=== PATIENT | female | born 1970 | race Two or more races ===

== ENCOUNTER 2018-10-20 23:35 | Emergency (ER) | payer MEDICAID, OTHER ==
[~2018-10-20] VITALS: Ht 167.6 cm; Wt 127.0 kg
--- NOTE | 2018-10-21 00:10 | NUR ---
STACYSELLiliana FROM [facility] . TO ER BED 1. AAOX4. NO RESP DISTRESS NOTED. AMBULATORY. C/O MIDLINE MALFUNCTION. PT REPORT LEAKING AND PAIN ON MID LINE SITE ON L UPPER ARM. MIDLINE WAS PLACED YESTERDAY FOR ATB TX FOR CELLULITIS ON HER LEGS. SRINIVAS VILLEDA FOR EVAL.
--- NOTE | 2018-10-21 01:20 | NUR ---
PICC NURSE AT BEDSIDE
--- NOTE | 2018-10-21 01:51 | NUR ---
NEW MID LINE SITE ON R UPPER ARM BY FITO PICC NURSE
--- NOTE | 2018-10-21 02:40 | NUR ---
AT BEDSIDE REMOVING OLD MIDLINE
--- NOTE | 2018-10-21 02:57 | NUR ---
Patient discharged to home in stable condition. Written and verbal after care instructions given. Patient verbalizes understanding of instruction. Pt ambulatory with a steady gait w/ an aide of a cane
[2018-10-21 02:59] VITALS: BP 155/83
== END 2018-10-21 02:59 | disposition home or self-care (01) ==
LOC: ER 23:48
DX: Z45.2 Encounter for adjustment and management of vascular access device (principal); F32.9 Major depressive disorder, single episode, unspecified; F41.9 Anxiety disorder, unspecified; R01.1 Cardiac murmur, unspecified; Z88.2 Allergy status to sulfonamides; Z88.1 Allergy status to other antibiotic agents
CPT/HCPCS: 36569

== ENCOUNTER 2018-10-21 22:38 | Emergency (ER) | payer MEDICAID, OTHER ==
[~2018-10-21] VITALS: Ht 167.6 cm; Wt 127.0 kg
--- NOTE | 2018-10-21 22:52 | NUR ---
PT BIBSELF C/O OF R MIDLINE NOT FLUSHING. PT AXO4. RESPIRATIONS EVEN AND UNLABORED. PT TAKING VANCOMYCIN IV FOR CELLULITIS. PT PUT ON THE CHOCOLATE TEMPERER AND PULSE OX. PENDING EVAL FROM MARKY VILLEDA.
--- NOTE | 2018-10-22 00:51 | NUR ---
Patient discharged to home in stable condition. Written and verbal after care instructions given. Patient verbalizes understanding of instruction. IV removed. Catheter intact and site benign. Pressure and 4x4 applied to site. No bleeding noted.
[2018-10-22 00:52] VITALS: BP 150/80
== END 2018-10-22 00:53 | disposition home or self-care (01) ==
LOC: ER 22:44
DX: Z45.2 Encounter for adjustment and management of vascular access device (principal); R01.1 Cardiac murmur, unspecified; Z88.2 Allergy status to sulfonamides; Z88.1 Allergy status to other antibiotic agents
CPT/HCPCS: 71045-TC

== ENCOUNTER 2018-10-22 10:05 | Emergency (ER) | payer MEDICAID, OTHER ==
[~2018-10-22] VITALS: Ht 167.6 cm; Wt 108.9 kg
--- NOTE | 2018-10-22 10:17 | NUR ---
PT BIB C/O PICC LINE MALFUNCTION, PT IS AAOX4, NOT IN RESPIRAOTRY DISTRESS, V/S STABLE, KEPT RESTED AND COMFORTABLE, WILL CONTINUE TO MONITOR.
--- NOTE | 2018-10-22 10:25 | NUR ---
SEEN AND EXAMINED BY DR. HUFF.
--- NOTE | 2018-10-22 11:09 | NUR ---
AWAITING PICC LINE NURSE FOR EVAL.
--- NOTE | 2018-10-22 12:00 | NUR ---
PICC LINE NURSE AT BEDSIDE.
--- NOTE | 2018-10-22 12:49 | NUR ---
Patient discharged to home in stable condition. Written and verbal after care instructions given. Patient verbalizes understanding of instruction.
[2018-10-22 12:50] VITALS: BP 138/78
== END 2018-10-22 12:55 | disposition home or self-care (01) ==
LOC: ER 10:09
DX: T82.898A Other specified complication of vascular prosthetic devices, implants and grafts, initial encounter (principal); R01.1 Cardiac murmur, unspecified; Z88.2 Allergy status to sulfonamides; Z88.1 Allergy status to other antibiotic agents

== ENCOUNTER 2018-10-23 07:26 | Emergency (ER) | payer OTHER ==
[~2018-10-23] VITALS: Ht 167.6 cm; Wt 158.8 kg
== END 2018-10-23 09:47 | disposition home or self-care (01) ==
LOC: ER 07:29
DX: T82.524A Displacement of infusion catheter, initial encounter (principal); Z88.2 Allergy status to sulfonamides; Z88.1 Allergy status to other antibiotic agents

== ENCOUNTER 2018-10-25 11:06 | Emergency (ER) | payer OTHER ==
[2018-10-25] MEDS ORDERED: diphenhydrAMINE HCL 50 MG/ML VIAL ONE (17:57)
[2018-10-25] MEDS ORDERED: methylPREDNISolone SOD SUCC 125 MG/2ML VIAL ONE (17:57)
[2018-10-25] MEDS ORDERED: methylPREDNISolone SOD SUCC 125 MG/2ML VIAL IV ONE (18:00)
[2018-10-25] MEDS ORDERED: FAMOTIDINE/PF INJ 40 MG in IV D5W 250 ML IV ONE (18:00)
[2018-10-25] MEDS ORDERED: diphenhydrAMINE HCL 50 MG/ML VIAL IV ONE (18:00)
== END 2018-10-25 21:43 | disposition short-term general hospital (02) ==
DX: L30.9 Dermatitis, unspecified (principal); F41.9 Anxiety disorder, unspecified; Z88.2 Allergy status to sulfonamides; Z88.1 Allergy status to other antibiotic agents
CPT/HCPCS: 36415; 71045; 80048; 80076; 81001; 83605; 84145; 84484; 85025; 85730; 87040 ×2; 87086; 93005; 96365; 96375; 99285; J1200; J2930; J3490; J7060

== ENCOUNTER 2019-02-13 11:59 | Emergency (ER) | payer OTHER ==
[~2019-02-13] VITALS: Ht 167.6 cm; Wt 131.5 kg
--- NOTE | 2019-02-13 12:09 | NUR ---
C/O GENERALIZED REDNESS AND ITCH, "I BROKE OUT IN HIVES BEC OF STRESS", PT AAOX4, -SOB, NAD NOTED, VSS, PENDING MD RUSS
[2019-02-13] MEDS ORDERED: predniSONE 10 MG TABLET PO ONE (13:30)
[2019-02-13] MEDS ORDERED: IV NS 0.9% 1,000 ML BAG IV ONE (13:30)
[2019-02-13] MEDS ORDERED: FAMOTIDINE/PF INJ 20 MG/2 ML VIAL IV ONE ×2 (13:30→13:45)
[2019-02-13] MEDS ORDERED: diphenhydrAMINE HCL 50 MG/ML VIAL IV ONE (13:30)
[2019-02-13] MEDS ORDERED: diphenhydrAMINE HCL 50 MG/ML VIAL ONE (13:45)
[2019-02-13] MEDS ORDERED: predniSONE 20 MG TABLET ONE (13:45)
[2019-02-13] MEDS ORDERED: ACETAMINOPHEN ES 500 MG TABLET ONE (14:58)
[2019-02-13 15:00] VITALS: BP 129/60
[2019-02-13] MEDS ORDERED: ACETAMINOPHEN 325 MG TABLET PO ONE (15:00)
[2019-02-20] MEDS ORDERED: CLIN300C11 PO (16:19)
[2019-02-20] MEDS ORDERED: CHLO118L6 TP (16:19)
[2019-02-20] MEDS ORDERED: MUPI22OI2 TP (16:19)
[2019-02-20] MEDS ORDERED: DOXY-226 PO (16:19)
[2019-02-20] MEDS ORDERED: ACID1TAB12 PO (16:19)
== END 2019-02-13 15:48 | disposition home or self-care (01) ==
LOC: ER 12:00
DX: T63.481A Toxic effect of venom of other arthropod, accidental (unintentional), initial encounter (principal); F41.9 Anxiety disorder, unspecified; Z88.2 Allergy status to sulfonamides; Z88.1 Allergy status to other antibiotic agents; Y92.89 Other specified places as the place of occurrence of the external cause
CPT/HCPCS: 96374; 96375; 99283; J1200; J3490; J7030; J7512

== ENCOUNTER 2019-02-17 11:48 | Emergency (ER) | payer OTHER ==
[~2019-02-17] VITALS: Ht 167.6 cm; Wt 127.0 kg
[2019-02-17 11:54] VITALS: BP 142/76
[2019-02-18] MEDS ORDERED: BUSP15TA3 PO (01:45)
[2019-02-18] MEDS ORDERED: PRED2.5T PO (01:45)
[2019-02-18] MEDS ORDERED: DICL100G34 TD (08:31)
[2019-02-18] MEDS ORDERED: CLIN300C3 PO (08:31)
[2019-02-18] MEDS ORDERED: HYDR-3972 PO (08:31)
[2019-02-20] MEDS ORDERED: ACID1TAB12 PO (16:19)
[2019-02-20] MEDS ORDERED: MUPI22OI2 TP (16:19)
[2019-02-20] MEDS ORDERED: DOXY-226 PO (16:19)
[2019-02-20] MEDS ORDERED: CHLO118L6 TP (16:19)
[2019-02-20] MEDS ORDERED: CLIN300C11 PO (16:19)
== END 2019-02-17 13:31 | disposition home or self-care (01) ==
LOC: ER 11:52
DX: L03.114 Cellulitis of left upper limb (principal); L03.311 Cellulitis of abdominal wall; F41.9 Anxiety disorder, unspecified; Z88.2 Allergy status to sulfonamides; Z88.1 Allergy status to other antibiotic agents; Z60.2 Problems related to living alone

== ENCOUNTER 2019-02-17 19:46 | Inpatient (IN) | payer OTHER ==
[~2019-02-17] VITALS: Ht 167.6 cm; Wt 144.2 kg
--- NOTE | 2019-02-17 20:00 | NUR ---
PT BIBRA. C/O "HAVING SKIN RASH ON HANDS AND ABDOMEN X1 DAY, FROM [place]QU[place]O BITE, ALSO HAD A FEVER TODAY" -SOB AOX4. AMBULATORY. VSS AT THIS TIME.
[2019-02-17] MEDS ORDERED: IBUPROFEN 600 MG TABLET PO ONE ×2 (20:12→20:30)
[2019-02-17] MEDS ORDERED: FAMOTIDINE/PF INJ 20 MG/2 ML VIAL IV ONE (20:12)
[2019-02-17] MEDS ORDERED: methylPREDNISolone SOD SUCC 125 MG/2ML VIAL ONE (20:12)
[2019-02-17] MEDS ORDERED: EPINEPHRINE (1:1000) 1 MG/ML AMPUL ONE (20:12)
[2019-02-17] MEDS ORDERED: CLINDAMYCIN 900 MG/6 ML VIAL ONE (20:12)
[2019-02-17] MEDS ORDERED: ACETAMINOPHEN ES 500 MG TABLET ONE (20:12)
--- NOTE | 2019-02-17 20:25 | NUR ---
PT MEDICATED ORDERED. VSS AT THIS TIME. -SOB NOTED. AOX4. -ACUTE DISTRESS NOTED.
[2019-02-17] MEDS ORDERED: CLINDAMYCIN 600 MG in IV D5W 100 ML IV ONE (20:30)
[2019-02-17] MEDS ORDERED: methylPREDNISolone SOD SUCC 125 MG/2ML VIAL IV ONE (20:30)
[2019-02-17] MEDS ORDERED: FAMOTIDINE/PF INJ 40 MG in IV D5W 250 ML IV ONE (20:30)
[2019-02-17] MEDS ORDERED: ACETAMINOPHEN ES 500 MG TABLET PO ONE (20:30)
[2019-02-17] MEDS ORDERED: EPINEPHRINE (1:1000) MDV 30 MG/30ML VIAL SUBCUT ONE (20:30)
[2019-02-17] MEDS ORDERED: IV NS 0.9% 1,000 ML BAG IV ONE ×2 (20:30→21:30)
[2019-02-17 20:33] LABS: BASOPHILS % (AUTO) 0.2 % (0.0-2.0); EOSINOPHILS % (AUTO) 0.2 % (0.0-6.0); HEMATOCRIT 43 % (33-45); HEMOGLOBIN 14.1 g/dL (11.5-14.8); LYMPHOCYTES # (AUTO) 1.8 /CMM (0.8-4.8); LYMPHOCYTES % (AUTO) 12.7 % (20.0-44.0); MEAN CORPUSCULAR HGB CONC 33 g/dl (31.0-36.0); MEAN CORPUSCULAR VOLUME 90 fL (82-100); MONOCYTES # (AUTO) 0.8 /CMM (0.1-1.30); MONOCYTES % (AUTO) 5.8 % (2.0-12.0); NEUTROPHILS # (AUTO) 11.4 /CMM (1.8-8.9); NEUTROPHILS % (AUTO) 81.1 % (43.0-81.0); PLATELET COUNT (AUTO) 315 /CMM (150-450); RED BLOOD CELL COUNT(AUTO) 4.71 MIL/uL (4.0-5.2); WHITE BLOOD COUNT (AUTO) 14.1 K/uL (4.3-11.0)
[2019-02-17 21:04] LABS: ALANINE AMINOTRANSFERASE 22 U/L (12-78); ALBUMIN 3.1 g/dL (3.4-5.0); ALKALINE PHOSPHATASE 95 U/L (46-116); ASPARTATE AMINOTRANSFERASE 17 U/L (15-37); BILIRUBIN,DIRECT 0.2 mg/dL (0.0-0.2); BILIRUBIN,TOTAL 0.7 mg/dL (0.2-1.0); CALCIUM, SERUM 8.8 mg/dL (8.5-10.1); CARBON DIOXIDE 29 mmol/L (21-32); CHLORIDE 103 mmol/L (98-107); GLUCOSE 99 mg/dL (74-106); POTASSIUM 3.7 mmol/L (3.5-5.1); SODIUM SERUM 140 mmol/L (136-145); TOTAL PROTEIN, SERUM 7.8 g/dL (6.4-8.2); UREA NITROGEN, BLOOD 15 mg/dL (7-18)
[2019-02-17] MEDS ORDERED: MAGNESIUM HYDROXIDE 30 ML UDC PO PRN (23:00)
[2019-02-17] MEDS ORDERED: MAG HYDROX/AL HYDROX/SIMETH 30 ML UDC PO PRN (23:00)
[2019-02-17] MEDS ORDERED: ACETAMINOPHEN 325 MG TABLET PO PRN (23:00)
[2019-02-17] MEDS ORDERED: Z GUARD REMEDY 2 OZ OINT TP PRN (23:00)
[2019-02-17] MEDS ORDERED: ONDANSETRON HCL/PF 4 MG/2 ML VIAL IVP PRN (23:00)
[2019-02-17 23:30] VITALS: BP 110/53
[2019-02-18] MEDS ORDERED: diphenhydrAMINE HCL 50 MG/ML VIAL IV PRN
[2019-02-18] MEDS ORDERED: MAG HYDROX/AL HYDROX/SIMETH 30 ML UDC PO PRN
[2019-02-18] MEDS ORDERED: ACETAMINOPHEN 325 MG TABLET PO PRN
[2019-02-18] MEDS ORDERED: MAGNESIUM HYDROXIDE 30 ML UDC PO PRN
[2019-02-18] MEDS ORDERED: Z GUARD REMEDY 2 OZ OINT TP PRN
[2019-02-18] MEDS ORDERED: ONDANSETRON HCL/PF 4 MG/2 ML VIAL IVP PRN
[2019-02-18] MEDS: IV NS 0.9% 1,000 ML IV PRN ×2 (01:27→18:23)
[2019-02-18] MEDS: HYDROCODONE/APAP 5/325MG 1 EACH TABLET PO PRN ×2 (01:42→08:40)
[2019-02-18] MEDS ORDERED: PRED2.5T PO (01:45)
[2019-02-18] MEDS ORDERED: BUSP15TA3 PO (01:45)
[2019-02-18] MEDS ORDERED: CLINDAMYCIN 900 MG/6 ML VIAL ONE (05:13)
[2019-02-18] MEDS: CLINDAMYCIN 900 MG in IV D5W 50 ML IV SCH ×3 (05:36→20:51)
--- NOTE | 2019-02-18 06:08 | NUR ---
RECEIVE PT VIA [facility] FROM [facility] 02/17/19 8741 PT A/O X 4, STABLE AND NOT IN DISTRESS, HEAD TO TOE ASSESSMENT IS DONE. NOTED WITH INSECT BITES WITH SURROUNDING ERYTHEMA TO LEFT UPPER EXTREMITY AND ABDOMEN. DENIES NAUSEA AND VOMITING DIFFICULTY VOMITING. NEEDS ATTENDED AND ANTICIPATED, KEPT CLEAN, DRY AND COMFORTABLE. AM CARE RENDERED. SAFETY MEASURES AT ALL TIMES. WILL CONTINUE TO MONITOR.
[2019-02-18 06:51] LABS: BASOPHILS % (AUTO) 0.2 % (0.0-2.0); HEMATOCRIT 37 % (33-45); HEMOGLOBIN 12.3 g/dL (11.5-14.8); MEAN CORPUSCULAR HGB CONC 33 g/dl (31.0-36.0); MEAN CORPUSCULAR VOLUME 90 fL (82-100); MONOCYTES # (AUTO) 0.4 /CMM (0.1-1.30); MONOCYTES % (AUTO) 1.9 % (2.0-12.0); NEUTROPHILS # (AUTO) 18.1 /CMM (1.8-8.9); NEUTROPHILS % (AUTO) 92.9 % (43.0-81.0); PLATELET COUNT (AUTO) 287 /CMM (150-450); RED BLOOD CELL COUNT(AUTO) 4.13 MIL/uL (4.0-5.2); WHITE BLOOD COUNT (AUTO) 19.5 K/uL (4.3-11.0)
--- NOTE | 2019-02-18 07:25 | NUR ---
MS RN OPENING NOTES RECEIVED PT IN BED, ASLEEP, EASILY AROUSED, A/O X4. PT TOLERATING RA, WITH NO ACUTE RESPIRATORY DISTRESS NOTED. PT DENIES ANY PAIN OR DISCOMFORT. ALSO, DENIES ANY CONCERNS OR QUESTIONS AT THIS TIME. IVF NS AT 75ML/HR TO RIGHT HAND G20, INTACT AND FLUID INFUSING WELL. PT KEPT COMFORTABLE. CALL LIGHT AND FLUIDS KEPT WITHIN REACH. PT'S BED IN LOWEST, LOCKED POSITION WITH SRX3. WILL CONTINUE PLAN OF CARE.
[2019-02-18 07:31] LABS: CALCIUM, SERUM 8.2 mg/dL (8.5-10.1); CREATININE 0.8 mg/dL (0.6-1.3); MAGNESIUM 2.1 mg/dL (1.8-2.4); PHOSPHORUS 2.6 mg/dL (2.5-4.9)
[2019-02-18 08:00] VITALS: BP 128/68
[2019-02-18] MEDS ORDERED: DICL100G34 TD (08:31)
[2019-02-18] MEDS ORDERED: HYDR-3972 PO (08:31)
[2019-02-18] MEDS ORDERED: CLIN300C3 PO (08:31)
--- NOTE | 2019-02-18 08:45 | NUR ---
MS RN NOTES PT COMPLAINED OF 9/10 PAIN, REQUESTED FOR NORCO. ALSO, FOR BUSPAR MEDICINE. HOSPITALIST/KR MADE AWARE REGARDING MED RECON. AWAITING FOR RESPONSE. WILL CONTINUE TO MONITOR.
--- NOTE | 2019-02-18 10:52 | NUR ---
WOUND CARE CONSULT: PT PRESENTS WITH RED DOTS ON BODY WITH SURROUNDING REDNESS, PRESENT ON ADMISSION. PT STATES THAT SHE HAS INSECT BITES AND THAT SHE HAS WEST NILE VIRUS. DEFER TO MD. PT IS INDEPENDENT WITH BED MOBILITY AND CONTINENT. WILL SEE PRN.
[2019-02-18] MEDS ORDERED: MORPHINE SULFATE INJ 4 MG/ML DISP.SYRIN IV ONE (11:00)
--- NOTE | 2019-02-18 11:59 | NUR ---
MS RN NOTES SEEN AND EVALUATED BY HOSPITALIST/DNP/TS. AWARE OF HX OF WEST NILE PER PT. TS DID A INCISION AND DRAINAGE TO THE OLIVIER AREA. SPECIMEN COLLECTED. RN MARKED ABDOMINAL ARE AND OLIVIER INDURATION PER TS. WILL CONTINUE TO MONITOR.
--- NOTE | 2019-02-18 15:00 | NUR ---
MS RN NOTES SENT SPECIMEN TO THE LAB. OLIVIER SITE, BLOOD WITH PUS. AND ABD AREA, SEROUS FLUID. PER PICK PACK WORKER/TS SEND SPECIMEN. PT AWARE.
[2019-02-18 16:00] VITALS: BP 106/54
[2019-02-18] MEDS: busPIRone 5 MG TABLET PO SCH (16:30)
--- NOTE | 2019-02-18 19:09 | NUR ---
MS RN CLOSING NOTES PT IN BED, AWAKE, A/O X4. PT TOLERATING RA, WITH NO ACUTE RESPIRATORY DISTRESS NOTED. PT DENIES ANY PAIN OR DISCOMFORT AT THIS TIME. IVF NS AT 75ML/HR TO RIGHT HAND G20, INTACT AND FLUID INFUSING WELL. PT KEPT COMFORTABLE. ALL NEEDS AND CARE ATTENDED. CALL LIGHT AND FLUIDS KEPT WITHIN REACH. PT'S BED IN LOWEST, LOCKED POSITION WITH SRX3. WILL ENDORSE TO INCOMING STONE DRILLER NURSE FOR VIKRAM.
--- NOTE | 2019-02-18 19:30 | NUR ---
MS RN OPENING NOTES Patient is currently in bed resting a/o X4 and able to make needs known. No signs of acute distress and denies any pain and discomfort at the moment. Breathing is even and unlabored, stable on room air. OLIVIER and abdominal erythema dressing is clean and dry. IV located on R hand #20 running NS @ 75ml/hr. Safety precautions in place with bed in lowest position, breaks on, and call light within reach. Will continue to monitor.
[2019-02-18 20:00] VITALS: BP 104/52
--- NOTE | 2019-02-19 02:00 | NUR ---
MS RN NOTES Patient complained of abdominal pain around wound site. Mentioned it was getting bigger and felt stabbing pain. Was not able to give pain medication due to low blood pressure. Patient was able to squeeze abdominal wound with puss and bloody exudate. Claimed some relief was felt from site. Abdomen measured to 135 cm, will monitor if abdominal girth increases in size. Changed dressing and applied heating pad. Will continue to monitor.
--- NOTE | 2019-02-19 02:46 | NUR ---
MS RN NOTES Placed ice packs on OLIVIER wound and abdominal wound. Will continue to monitor.
[2019-02-19] MEDS: CLINDAMYCIN 900 MG in IV D5W 50 ML IV SCH ×3 (05:15→20:13)
--- NOTE | 2019-02-19 05:26 | NUR ---
MS RN NOTES Patient complaining flu like symptoms of shivers, heavy headed, and muscle weakness. Claims that arms are tingling and numb, symptoms present to when she admitted to the hospital. Patient refuses and medications. Will place ice pack on patients abdomen and left arm. Will continue to monitor.
[2019-02-19] MEDS: HYDROCODONE/APAP 5/325MG 1 EACH TABLET PO PRN ×3 (05:38→22:53)
--- NOTE | 2019-02-19 06:24 | NUR ---
MS RN CLOSING NOTES Patient in bed, resting a/o X4. Currently on room air, breathing even and unlabored. No signs of acute distress and no current complaints of pain, just slight discomfort. IV located on R hand #20 running NS @ 75 ml/ hr. Patient was kept clean and comfortable throughout the night, all needs were met. Safety precautions in place with bed in lowest position, breaks on, and call light within reach. Will endorse to oncoming shift about VIKRAM.
--- NOTE | 2019-02-19 07:29 | NUR ---
RN OPENING NOTE PT WAS RECEIVED IN BED AT LOWEST AND LOCKED POSITION WITH SIDE RAILS UP X2, A/O X4 BREATHING EVEN AND UNLABORED ON RA WITH NO S/S OF ANY DISTRESS OR PAIN AT THIS TIME, IV IS PATENT AND INTACT, PT IS AMBULATORY, INFORMED BY NIGHT RN THAT PT HAD I&D OF OLIVIER AND ABDOMEN YESTERDAY BY WITH AREAS MARKED, SAFETY PRECAUTIONS IN PLACE, CALL LIGHT IN REACH, WILL MONITOR ACCORDINGLY
[2019-02-19 08:00] VITALS: BP 115/66
[2019-02-19] MEDS: busPIRone 5 MG TABLET PO SCH ×2 (08:15→16:11)
[2019-02-19] MEDS: ACIDOPHILUS/BULGARICUS 1 EACH TAB.CHEW PO SCH ×2 (12:40→16:10)
--- NOTE | 2019-02-19 15:57 | NUR ---
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 CHARGE NURSE KOLBY MADE AWARE, WILL FOLLOW ISOLATION PROTOCOL
[2019-02-19 16:00] VITALS: BP 117/60
[2019-02-19] MEDS: IV NS 0.9% 1,000 ML IV PRN (17:00)
--- NOTE | 2019-02-19 18:36 | NUR ---
RN CLOSING NOTE PT IN BED AT LOWEST AND LOCKED POSITION WITH SIDE RAILS UP X2, A/O X4 BREATHING EVEN AND UNLABORED ON RA WITH NO DISTRESS OR PAIN AT THIS TIME, RIGHT FOREARM GAUGE 22 IV IS PATENT AND INTACT, SAFETY PRECAUTIONS IN PLACE, CALL LIGHT IN REACH, ALL NEEDS ATTENDED TO, WILL ENDORSE TO NIGHT RN FOR VIKRAM.
--- NOTE | 2019-02-19 19:53 | NUR ---
M/S RN OPENING NOTES Patient is currently resting in bed a/o x4. Patient stable on room air breathing even and unlabored. No complaints of SOB, appears to be in no acute distress, and no current complaints of pain. Patient is ambulatory and has bathroom privileges. Iv located on R FA #22 patent and intact. Safety precautions in place with bed in lowest position, call light within reach, breaks, and side rails up x2. Will continue to monitor.
[2019-02-19 20:00] VITALS: BP 123/56
[2019-02-19] MEDS: MUPIROCIN OINT 2% 22 GM TUBE SCH (20:13)
[2019-02-20] MEDS: CLINDAMYCIN 900 MG in IV D5W 50 ML IV SCH ×2 (05:11→12:01)
[2019-02-20] MEDS: HYDROCODONE/APAP 5/325MG 1 EACH TABLET PO PRN ×2 (05:22→09:48)
[2019-02-20 06:21] LABS: BASOPHILS % (AUTO) 0.2 % (0.0-2.0); EOSINOPHILS % (AUTO) 1.4 % (0.0-6.0); HEMATOCRIT 36 % (33-45); HEMOGLOBIN 11.9 g/dL (11.5-14.8); LYMPHOCYTES # (AUTO) 3.5 /CMM (0.8-4.8); LYMPHOCYTES % (AUTO) 31.2 % (20.0-44.0); MEAN CORPUSCULAR HGB CONC 33 g/dl (31.0-36.0); MEAN CORPUSCULAR VOLUME 90 fL (82-100); MONOCYTES # (AUTO) 0.8 /CMM (0.1-1.30); MONOCYTES % (AUTO) 6.7 % (2.0-12.0); NEUTROPHILS # (AUTO) 6.8 /CMM (1.8-8.9); NEUTROPHILS % (AUTO) 60.5 % (43.0-81.0); PLATELET COUNT (AUTO) 302 /CMM (150-450); RED BLOOD CELL COUNT(AUTO) 3.99 MIL/uL (4.0-5.2); WHITE BLOOD COUNT (AUTO) 11.3 K/uL (4.3-11.0)
[2019-02-20 06:28] LABS: CALCIUM, SERUM 8.5 mg/dL (8.5-10.1); CREATININE 0.8 mg/dL (0.6-1.3); MAGNESIUM 2.3 mg/dL (1.8-2.4); PHOSPHORUS 4.1 mg/dL (2.5-4.9); POTASSIUM 3.9 mmol/L (3.5-5.1)
--- NOTE | 2019-02-20 06:38 | NUR ---
MS RN CLOSING NOTES Patient is curretly resting in bed a/o x4. Stable on RA, breathing even and unlabored. Currently no complaints of pain or discomfort. IV located on right FA #22 patent and intact. All needs were met. Erythema on OLIVIER and abdomen was kept clean and dry. Safety precautions in place with bed in lowest position, locked, call light within reach, and side rails up x2. All needs were attended to. Will endorse to oncoming shift about VIKRAM.
--- NOTE | 2019-02-20 07:36 | NUR ---
RN OPENING NOTE PT WAS RECEIVED IN BED AT LOWEST AND LOCKED POSITION WITH SIDE RAILS UP X2, A/O X4 BREATHING EVEN AND UNLABORED ON RA WITH NO S/S OF ANY DISTRESS OR PAIN AT THIS TIME, IV IS PATENT AND INTACT, PT IS AMBULATORY, SAFETY PRECAUTIONS IN PLACE, CALL LIGHT IN REACH, WILL MONITOR ACCORDINGLY
[2019-02-20 08:00] VITALS: BP 107/61
[2019-02-20] MEDS: ACIDOPHILUS/BULGARICUS 1 EACH TAB.CHEW PO SCH ×3 (08:07→16:07)
[2019-02-20] MEDS: busPIRone 5 MG TABLET PO SCH ×2 (08:07→16:07)
[2019-02-20] MEDS: MUPIROCIN OINT 2% 22 GM TUBE SCH (08:07)
[2019-02-20 16:00] VITALS: BP 130/67
[2019-02-20] MEDS ORDERED: CHLO118L6 TP (16:19)
[2019-02-20] MEDS ORDERED: MUPI22OI2 TP (16:19)
[2019-02-20] MEDS ORDERED: CLIN300C11 PO (16:19)
[2019-02-20] MEDS ORDERED: DOXY-226 PO (16:19)
[2019-02-20] MEDS ORDERED: ACID1TAB12 PO (16:19)
--- NOTE | 2019-02-20 17:41 | NUR ---
DISCHARGE NOTE PT WAS DISCHARGE AT THIS TIME IN MEDICALLY STABLE CONDITION A/O X4 BREATHING AND EVEN AND UNLABORED WITH NO DISTRESS OR PAIN, IV AND ID BAND WERE REMOVED. ALL DISCHARGE PAPERWORK INCLUDING EXITCARE AND BELONGING LIST WERE DISCUSSED, SIGNED AND HANDED TO THE PT. DISCHARGE INSTRUCTIONS WERE EXPLAINED TO THE PT. PHOTOS OF SKIN WERE TAKEN AND PLACED IN THE CHART. ALL NEEDS WERE ATTENDED TO DURING HER STAY. PT WAS TAKEN DOWN AT THIS TIME VIA WHEELCHAIR WHERE SHE LEFT IN VIA AN UBER THAT SHE ORDERED.
== END 2019-02-20 19:00 | disposition home or self-care (01) | DRG 720 ==
LOC: ER 19:47 → MED 22:03
PROVIDERS: ADMIT Internal Medicine; ATTEND Nurse Practitioner Acute Care
DX: A41.9 Sepsis, unspecified organism (principal); E43 Unspecified severe protein-calorie malnutrition; E87.2 Acidosis; L03.114 Cellulitis of left upper limb; F41.9 Anxiety disorder, unspecified; Z88.3 Allergy status to other anti-infective agents; Z88.2 Allergy status to sulfonamides; E66.01 Morbid (severe) obesity due to excess calories; Z68.42 Body mass index [BMI] 45.0-49.9, adult; L02.414 Cutaneous abscess of left upper limb; L02.211 Cutaneous abscess of abdominal wall; F29 Unspecified psychosis not due to a substance or known physiological condition; B95.62 Methicillin resistant Staphylococcus aureus infection as the cause of diseases classified elsewhere; S40.862A Insect bite (nonvenomous) of left upper arm, initial encounter; S30.861A Insect bite (nonvenomous) of abdominal wall, initial encounter; W57.XXXA Bitten or stung by nonvenomous insect and other nonvenomous arthropods, initial encounter; Y92.9 Unspecified place or not applicable
CPT/HCPCS: 36415; 80048-TC; 80076-TC; 83605-TC; 83735-TC; 84100-TC; 84703-TC; 85025-TC; 87040-TC; 87070-TC; 87081-TC; G0378; J0171; J2270; J2930; J3490; J7030; J7060

== ENCOUNTER 2024-08-28 14:19 | Emergency (ER) | payer OTHER ==
[~2024-08-28] VITALS: Ht 167.6 cm; Wt 145.1 kg
[~2024-08-28 14:19] MED LIST: ACID1TAB12 PO; BUSP15TA3 PO; CHLO118L6 TP; CLIN300C12 PO; DICL100G34 TD; DOXY-226 PO; HYDR-3972 PO; MUPI22OI2 TP
[2024-08-28] MEDS ORDERED: CYCLOBENZAPRINE 10 MG TABLET ONE (15:38)
[2024-08-28] MEDS ORDERED: LIDOCAINE 5% (PATCH) 1 EA PATCH TP ONE (15:38)
[2024-08-28] MEDS ORDERED: ACETAMINOPHEN ES 500 MG TABLET ONE (15:38)
[2024-08-28] MEDS: CYCLOBENZAPRINE 10 MG TABLET PO ONE (15:45)
[2024-08-28] MEDS: ACETAMINOPHEN ES 500 MG TABLET PO ONE (15:46)
[2024-08-28] MEDS: LIDOCAINE 5% (PATCH) 1 EA PATCH TP SCH (15:46)
[2024-08-28] MEDS ORDERED: LIDO30AD10 TP (17:07)
[2024-08-28] MEDS ORDERED: CYCL10TA9 PO (17:07)
[2024-08-28] MEDS ORDERED: ACET-2030 PO (17:07)
[2024-08-28 17:47] VITALS: BP 138/79; TEMP 97.7; O2SAT 98
== END 2024-08-28 17:48 | disposition home or self-care (01) ==
LOC: ER 14:22
DX: S13.4XXA Sprain of ligaments of cervical spine, initial encounter (principal); M62.838 Other muscle spasm; F41.9 Anxiety disorder, unspecified; Z79.899 Other long term (current) drug therapy; Y99.8 Other external cause status; Z88.1 Allergy status to other antibiotic agents; Z60.2 Problems related to living alone; Z88.2 Allergy status to sulfonamides; V49.40XA Driver injured in collision with unspecified motor vehicles in traffic accident, initial encounter; Y93.89 Activity, other specified; Y92.488 Other paved roadways as the place of occurrence of the external cause
CPT/HCPCS: 72125-TC; 72128-TC